=== PATIENT | female | born 1965 | race Caucasian/White ===

== ENCOUNTER 2021-07-07 18:21 | Emergency (ER) | payer SELFPAY ==
[2021-07-07 18:28] VITALS: BP 174/70; PULSE 95; TEMP 98.4; BMI 30.9
[2021-07-07] MEDS ORDERED: predniSONE 20 MG TABLET (UD) PO ONE (18:43)
[2021-07-07] MEDS ORDERED: valACYclovir HCL 1000 MG TABLET PO ONE (18:44)
[2021-07-07] MEDS ORDERED: predniSONE 20 MG TABLET (UD) ONE (18:45)
[2021-07-07] MEDS ORDERED: valACYclovir HCL 500 MG TABLET (FP) ONE (18:50)
[2021-07-07] MEDS ORDERED: ACETAMINOPHEN 500 MG TABLET (FP) PO ONE (19:28)
[2021-07-07] MEDS ORDERED: ACETAMINOPHEN 500 MG TABLET (FP) ONE (19:44)
== END 2021-07-07 21:17 | disposition home or self-care (01) ==
LOC: JER 18:21
DX: G51.0 Bell's palsy (principal)
CPT/HCPCS: 70450-TC; 82962; 99285-25